=== PATIENT | male | born 1960 | race Caucasian/White ===

== ENCOUNTER 2021-01-01 10:59 | Emergency (ER) | payer BC ==
[~2021-01-01] VITALS: Ht 175.3 cm; Wt 86.2 kg
--- NOTE | 2021-01-01 11:30 | NUR ---
MARK AND JEMMA TO ER 7, A/O X4, C/O OF B/L EYE PAIN S/P PEPPER SPRAYED, INITIALLY FLUSH WITH NS MANUALLY, NO SIGNS OF DISTRESS NOTED AT THIS TIME, WILL CONTINUE TO MONITOR.
[2021-01-01] MEDS ORDERED: TETRACAINE HCL 0.5% OPHTALMIC 15 ML BOTTLE OP ONE (12:30)
--- NOTE | 2021-01-01 12:30 | NUR ---
CAESAR'S LENS STARTED ON B/L EYES. WILL CONTINUE TO MONITOR.
[2021-01-01] MEDS ORDERED: KETOROLAC TROMETHAMINE 15 MG/ML VIAL ONE (12:52)
[2021-01-01] MEDS ORDERED: FLUORESCEIN SODIUM OPHTH 1 EA STRIP OP ONE (13:00)
[2021-01-01] MEDS ORDERED: KETOROLAC TROMETHAMINE INJ 30 MG/ML VIAL IM ONE (13:00)
--- NOTE | 2021-01-01 13:14 | NUR ---
Patient discharged to home in stable condition. Written and verbal after care instructions given. Patient verbalizes understanding of instruction. Pt ambulatory with a steady gait
[2021-01-01 13:18] VITALS: BP 134/89
== END 2021-01-01 13:20 | disposition home or self-care (01) ==
LOC: ER 11:05
DX: T65.893A Toxic effect of other specified substances, assault, initial encounter (principal); H57.13 Ocular pain, bilateral; H57.89 Other specified disorders of eye and adnexa; Y92.89 Other specified places as the place of occurrence of the external cause
CPT/HCPCS: 71045; 96372; 99284; J1885; J7030

== ENCOUNTER 2024-05-01 22:39 | Emergency (ER) | payer BC, OTHER ==
[~2024-05-01] VITALS: Ht 175.3 cm; Wt 99.8 kg
[2024-05-01 23:53] VITALS: BP 135/86; TEMP 98.5; O2SAT 98
== END 2024-05-01 23:54 ==
LOC: ER 22:51
DX: Z02.89 Encounter for other administrative examinations (principal)